=== PATIENT | male | born 1940 | race Two or more races ===

== ENCOUNTER 2017-07-12 11:27 | Inpatient (IN) | payer MEDICAID ==
[~2017-07-12] VITALS: Ht 170.2 cm; Wt 69.9 kg
[2017-07-12 11:27] VITALS: BP 127/73
--- NOTE | 2017-07-12 11:35 | Emergency Room Report ---
History of Present Illness General Chief Complaint: Altered Mental Status Source: Medical Record, PMD Present Illness HPI 77-year-old male brought in by [facility] jail with concern for altered mental status EMS and jail did not qualify what they meant by more altered than usual history of present illness limited on vent All information for review of paperwork History of diabetes, hypertension, BPH, glaucoma, known difficulty ambulating, muscle weakness, COPD X-ray on July 10 shows improvement in no and bilateral, has been on amikacin Allergies: Coded Allergies: No Known Allergies (Unverified , 07/12/17) Patient History Past Medical History: other - see hpi Past Surgical History: other - Trach/vent Pertinent Family History: none Social History: Denies: smoking, alcohol use, drug use Immunizations: UTD Reviewed Nursing Documentation: PMH: Agreed, PSxH: Agreed Review of Systems All Other Systems: limited - by trach/vent Physical Exam Vital Signs Date Time Temp Pulse Resp B/P (MAP) Pulse Ox O2 Delivery O2 Flow Rate FiO2 07/12/17 11:18 74 18 128/73 99 Mechanical Ventilator 40 Sp02 EP Interpretation: reviewed, normal General Appearance: normal inspection, well appearing, no apparent distress, alert, GCS 15, non-toxic Head: normocephalic, atraumatic ENT: normal ENT inspection, normal pharynx, no angioedema, normal voice Neck: normal inspection, full range of motion, supple, thyroid normal, no meningismus, no bony tend, tracheotomy Respiratory: normal inspection, no respiratory distress, no retraction, no accessory muscle use, no wheezing, crackles, speaking full sentences - non verbal Cardiovascular #1: regular rate, rhythm, no edema Gastrointestinal: normal inspection, normal bowel sounds, non tender, soft, no guarding, no hernia Genitourinary: no CVA tenderness Musculoskeletal: normal inspection, back normal, normal range of motion, David' s Sign negative Neurologic: normal inspection, alert, responsive, air route controller III-XII nml as tested, motor strength/tone normal, speech normal Psychiatric: normal inspection, judgement/insight normal, mood/affect normal Skin: normal inspection, normal color, no rash Lymphatic: normal inspection Medical Decision Making Medicare Attestation I Mari Guzman MD hereby attest that the medical record entry for date of service, 07/12/17 accurately reflects signatures/notations that I made in my capacity as MD when I treated/diagnosed the above listed Medicare beneficiary. I attest that this information is true, accurate and complete to the best of my knowledge. I understand that any falsification, omission, or concealment of material fact may subject me to administrative, civil, or criminal liability. This patient warrants hospital admission for extreme of age and has a condition that cannot be treated as outpatient. Diagnostic Impression: Primary Impression: Altered mental status Qualified Codes: R41.82 - Altered mental status, unspecified Additional Impression: Pneumonia Qualified Codes: B59 - Pneumocystosis ER Course 77-year-old male on trach vent with suspected more altered unusual Vital signs stable, afebrile No focal neurological deficits to suggest acute CVA Her paperwork from the jail has known bilateral pneumonia, on x-ray today looks like right greater than left bilateral fluffy infiltrates consistent with pneumonia Otherwise afebrile, no leukocytosis, normotensive, nonseptic appearing Review of paperwork shows patient was on amikacin, will continue here For cultures pending No other significant metabolic abnormality Endorsed to Dr. Cruz [facility] admission as PMD at 125pm EKG Diagnostic Results Rate: normal Rhythm: other - bifascicular block, LVH ST Segments: no acute changes ASA given to the pt in ED: No Rhythm Strip Diag. Results EP Interpretation: yes Rate: 74 Rhythm: NSR, no PVC's, no ectopy Chest X-Ray Diagnostic Results Chest X-Ray Diagnostic Results : Chest X-Ray Ordered: Yes # of Views/Limited/Complete: 1 View Indication: Other - AMS EP Interpretation: Yes Interpretation: other - Bilateral R>L PNA Electronically Signed by: Dr Mari Guzman MD Last Vital Signs Date Time Temp Pulse Resp B/P (MAP) Pulse Ox O2 Delivery O2 Flow Rate FiO2 07/12/17 11:18 74 18 128/73 99 Mechanical Ventilator 40 Status: improved Disposition: ADMITTED INPATIENT Condition: Serious MARI GUZMAN M.D. Jul 12, 2017 11:35
[2017-07-12 12:51] LABS: BASOPHILS % (AUTO) 0.7 % (0.0-2.0); EOSINOPHILS % (AUTO) 1.7 % (0.0-3.0); LYMPHOCYTES % (AUTO) 14.2 % (20.0-45.0); MEAN CORPUSCULAR HEMOGLOBIN 26.6 PG (27.0-31.0); MEAN CORPUSCULAR HGB CONC 29.9 G/DL (32.0-36.0); MEAN CORPUSCULAR VOLUME 89 FL (80-99); MEAN PLATELET VOLUME 6.9 FL (6.5-10.1); MONOCYTES % (AUTO) 6.4 % (1.0-10.0); PLATELET COUNT 319 K/UL (150-450); RED BLOOD COUNT 3.28 M/UL (4.70-6.10); RED CELL DISTRIBUTION WIDTH 17.3 % (11.6-14.8); WHITE BLOOD COUNT 9.9 K/UL (4.8-10.8)
[2017-07-12 12:57] LABS: APPEARANCE,URINE CLEAR; KETONES,URINE NEGATIVE (NEGATIVE); LEUKOCYTE ESTERASE ,URINE NEGATIVE (NEGATIVE); NITRITE,URINE NEGATIVE (NEGATIVE); PH,URINE 7 (4.5-8.0); PROTEIN,URINE 1+ (NEGATIVE); UROBILINOGEN,URINE 1 MG/DL (0.0-1.0)
[2017-07-12] MEDS ORDERED: Amikacin 1,000 MG in NS 110 ML IV STA (13:00)
[2017-07-12 13:01] LABS: INR 1.2 (0.9-1.1); PROTHROMBIN TIME 12.2 SEC (9.30-11.50)
[2017-07-12 13:03] LABS: ANION GAP 0 mmol/L (5-15); CALCIUM 10.7 MG/DL (8.5-10.1); CARBON DIOXIDE 37 MMOL/L (21-32); CHLORIDE 101 MMOL/L (98-107); CREATININE 0.9 MG/DL (0.55-1.30); POTASSIUM 4.7 MMOL/L (3.5-5.1); SODIUM 138 MMOL/L (136-145)
[2017-07-12] MEDS ORDERED: EPOGEN20000 UNI1 SUBQ (13:09)
[2017-07-12] MEDS ORDERED: NOVOLOG100 UNIT/3 SUBQ (13:09)
[2017-07-12] MEDS ORDERED: LEVEMIR100 UNIT/1 SUBQ (13:09)
[2017-07-12 13:11] LABS: BACTERIA,URINE FEW /HPF; RBC,URINE 0-2 /HPF (0 - 0); SQUAMOUS EPITHELIAL CELL,UR FEW /LPF (NONE/OCC); WBC,URINE 0-2 /HPF (0 - 0)
[2017-07-12 13:15] VITALS: BP 113/69
[2017-07-12 13:17] LABS: ALANINE AMINOTRANSFERASE 15 U/L (12-78); ALBUMIN/GLOBULIN RATIO 0.2 (1.0-2.7); ASPARTATE AMINO TRANSFERASE 19 U/L (15-37); CKMB 0.8 NG/ML (0.0-3.6); TOTAL PROTEIN 8.5 G/DL (6.4-8.2)
[2017-07-12 15:36] VITALS: BP 105/43
[2017-07-12 16:00] VITALS: BP 121/49
--- NOTE | 2017-07-12 16:12 | Diagnostic Imaging Report ---
Clinical Indication: Abdominal pain Technique: No oral contrast utilized, per referring physician request IV administration nonionic contrast. Venous phase spiral acquisition obtained through the abdomen and pelvis. Multiplanar reconstructions were generated. Total dose length product 716 mGycm. CTDIvol(s) 13 mGy. Dose reduction achieved using automated exposure control Comparison: None Findings: Lack of enteric contrast limits assessment of the GI tract. The appendix is normal. Considerable stool is seen throughout the colon, which is diffusely upper limits of normal in caliber. There is mild distention of the rectum by stool. No definite rectal wall thickening, but there is slight increased attenuation of the perirectal fat. There are equivocal small diverticula. No evidence of diverticulitis. No small bowel distention. There is a gastrostomy tube in good position. The stomach and duodenum are otherwise unremarkable. The distal esophagus is unremarkable. The gallbladder is markedly distended. No definite wall thickening. Contents of the gallbladder are high attenuation. There is some slightly denser material layering dependently. No biliary ductal dilatation The liver is unremarkable. The pancreas is atrophic. The spleen, adrenals are unremarkable. The right kidney demonstrates contour lobulation, is otherwise unremarkable. The left kidney demonstrates an exophytic subcentimeter low-attenuation lesion which is too small to characterize, as well as slight contour lobulation. There is very slight fullness of the left renal collecting system and proximal ureter, but no evident obstructing lesion. The bladder is mildly distended. No pelvic mass or adenopathy. No retroperitoneal or mesenteric mass or adenopathy. The heart is enlarged. There are is fairly extensive bilateral pulmonary interstitial and airspace disease. There is equivocal mild bronchiectasis, particularly in the lower lobes. A few right lower lobe bronchi appear to contain debris. The bones are remarkable for an old healed left inferior pubic ramus fracture deformity. There are wedge fracture deformities of the L1, L2, and questionably the L3 vertebral body. Impression: Limited assessment of the GI tract, due to lack of enteric contrast administration Distended gallbladder. No definite wall thickening or pericholecystic fluid. Significance uncertain, consider ultrasound for further evaluation as clinically indicated Somewhat dense gallbladder contents, likely reflects milk of calcium bile. This could also represent excreted contrast there is been recent vascular contrast study. Material layering dependently within the gallbladder could represent milk of calcium bile, small stones, or sludge Cardiomegaly Extensive bilateral pulmonary parenchymal disease. Given the above, suspect on the basis of congestive heart failure. However, findings could also represent pneumonia and it could be a significant chronic fibrotic component as well. There is also evidence of debris within right lower lobe bronchi Evidence of constipation Mild distention of the rectum by stool, mild fecal impaction not excludable. No definite rectal wall thickening, is slight increased attenuation of the perirectal fat could indicate a slight degree of stercoral colitis Equivocal colonic diverticulosis Gastrostomy in good position Subcentimeter low-attenuation left renal lesion, too small to characterize, most likely benign cyst. No further followup necessary L1, L2, and questionably L3 vertebral body compression fracture deformities. Acuity indeterminate. Consider MRI for better characterization of these are clinically relevant Distended bladder Other findings as noted, including old healed left inferior pubic ramus fracture deformity, atrophic pancreas The CT scanner at [facility] is accredited by the [employer] and the scans are performed usi -- ng protocols designed to limit radiation exposure to as low as reasonably achievable to attain images of sufficient resolution adequate for diagnostic evaluation.
[2017-07-12] MEDS ORDERED: TRUSOPT10 ML BOTH EYES (16:20)
[2017-07-12] MEDS ORDERED: COLACE100 MG GT (16:20)
[2017-07-12] MEDS ORDERED: ACETAMINOP160 MG/52 ORAL (16:20)
[2017-07-12] MEDS ORDERED: PEPCID20 MG GT (16:21)
[2017-07-12] MEDS ORDERED: TIMOPTIC 0.5%1 DRO1 BOTH EYES (16:21)
[2017-07-12] MEDS ORDERED: Acetaminophen Soln 160mg/5ml ORAL PRN (16:30)
[2017-07-12] MEDS ORDERED: Zolpidem 5mg tab GT PRN (16:30)
[2017-07-12] MEDS ORDERED: Acetaminophen 650mg/20.3ml GT PRN ×2 (17:00)
[2017-07-12] MEDS: Docusate 100mg/10ml Liq GT SCH ×2 (17:00→17:51)
--- NOTE | 2017-07-12 17:14 | Diagnostic Imaging Report ---
Indication: Shortness of breath Technique: One view of the chest Comparison: none Findings: There is extensive diffuse bilateral interstitial and alveolar parenchymal disease. The heart is borderline enlarged. There is slight blunting of the left posterior costophrenic sulcus. There is a tracheostomy. Impression: Extensive bilateral interstitial and alveolar parenchymal infiltrates versus edema. There may also be a chronic component. Correlate with clinical findings Borderline cardiomegaly Tracheostomy
[2017-07-12] MEDS: Piperacillin/Tazobactam 3.375 GM in D5W 55 ML IVPB SCH (17:49)
[2017-07-12] MEDS ORDERED: NovoLOG Insulin Flexpen SUBQ SCH (18:00)
[2017-07-12] MEDS: Dorzolamide 2% 10ml Btl BOTH EYES SCH (18:00)
[2017-07-12] MEDS: Timolol 0.5% Op Soln 2.5ml BOTH EYES SCH (18:00)
[2017-07-12] MEDS: NovoLOG Insulin Flexpen SUBQ SCH ×2 (18:28→23:54)
[2017-07-12 20:00] VITALS: BP 97/54
[2017-07-12] MEDS: Heparin 5000 units/ml inj SUBQ SCH (20:37)
[2017-07-12] MEDS: Levemir Flexpen SUBQ SCH (20:38)
[2017-07-12] MEDS: Vancomycin 1gm in D5W 275ml IVPB SCH (20:58)
[2017-07-13] VITALS: BP 116/52
[2017-07-13] MEDS: Piperacillin/Tazobactam 3.375 GM in D5W 55 ML IVPB SCH ×3 (02:14→17:06)
[2017-07-13 04:00] VITALS: BP 112/54
[2017-07-13 04:36] LABS: EOSINOPHILS % (AUTO) 3.3 % (0.0-3.0); LYMPHOCYTES % (AUTO) 16.9 % (20.0-45.0); MEAN CORPUSCULAR HEMOGLOBIN 28.4 PG (27.0-31.0); MEAN CORPUSCULAR VOLUME 89 FL (80-99); MEAN PLATELET VOLUME 7.3 FL (6.5-10.1); MONOCYTES % (AUTO) 7.7 % (1.0-10.0); NEUTROPHILS % (AUTO) 71.1 % (45.0-75.0); PLATELET COUNT 342 K/UL (150-450); RED BLOOD COUNT 3.14 M/UL (4.70-6.10); WHITE BLOOD COUNT 11.3 K/UL (4.8-10.8)
[2017-07-13 05:08] LABS: ANION GAP 3 mmol/L (5-15); CALCIUM 10.6 MG/DL (8.5-10.1); CARBON DIOXIDE 33 MMOL/L (21-32); CHLORIDE 103 MMOL/L (98-107); CREATININE 0.9 MG/DL (0.55-1.30); SODIUM 139 MMOL/L (136-145)
[2017-07-13] MEDS: NovoLOG Insulin Flexpen SUBQ SCH ×4 (06:00→23:58)
[2017-07-13 08:00] VITALS: BP 97/57
--- NOTE | 2017-07-13 08:03 | History & Physical ---
History and Physical History & Physicial 77-year-old male brought in from intermediate presents with abdominal distention. patient noted to have significant pneumonia. Patient chronically on the ventilator and GT. patient as well with pneumonia at the SNF and on inhaled antibiotics. currently stable and admitted to [facility] Allergies: No Known Allergies (Unverified , 07/12/17) Patient History Past Medical History: diabetes, hypertension, BPH, glaucoma, muscle weakness, COPD Past Surgical History: Trach/vent Pertinent Family History: none Social History: SNf care and bed bound Reviewed of systems: unable Physical exam WDWN NAD reduced breath sounds bilaterally without rhonchi or wheeze [id number] without MRG NABS nontender no HSM trach and GT in place no CCE nonfocal Laboratory Tests Test 07/12/17 12:00 07/12/17 12:35 07/13/17 03:25 White Blood Count 9.9 K/UL (4.8-10.8) 11.3 K/UL (4.8-10.8) H Red Blood Count 3.28 M/UL (4.70-6.10) L 3.14 M/UL (4.70-6.10) L Hemoglobin 8.7 G/DL (14.2-18.0) L 8.9 G/DL (14.2-18.0) L Hematocrit 29.1 % (42.0-52.0) L 27.9 % (42.0-52.0) L Mean Corpuscular Volume 89 FL (80-99) 89 FL (80-99) Mean Corpuscular Hemoglobin 26.6 PG (27.0-31.0) L 28.4 PG (27.0-31.0) Mean Corpuscular Hemoglobin Concent 29.9 G/DL (32.0-36.0) L 32.0 G/DL (32.0-36.0) Red Cell Distribution Width 17.3 % (11.6-14.8) H 17.0 % (11.6-14.8) H Platelet Count 319 K/UL (150-450) 342 K/UL (150-450) Mean Platelet Volume 6.9 FL (6.5-10.1) 7.3 FL (6.5-10.1) Neutrophils (%) (Auto) 77.0 % (45.0-75.0) H 71.1 % (45.0-75.0) Lymphocytes (%) (Auto) 14.2 % (20.0-45.0) L 16.9 % (20.0-45.0) L Monocytes (%) (Auto) 6.4 % (1.0-10.0) 7.7 % (1.0-10.0) Eosinophils (%) (Auto) 1.7 % (0.0-3.0) 3.3 % (0.0-3.0) H Basophils (%) (Auto) 0.7 % (0.0-2.0) 1.0 % (0.0-2.0) Prothrombin Time 12.2 SEC (9.30-11.50) H Prothromb Time International Ratio 1.2 (0.9-1.1) H Sodium Level 138 MMOL/L (136-145) 139 MMOL/L (136-145) Potassium Level 4.7 MMOL/L (3.5-5.1) 4.0 MMOL/L (3.5-5.1) Chloride Level 101 MMOL/L (98-107) 103 MMOL/L (98-107) Carbon Dioxide Level 37 MMOL/L (21-32) H 33 MMOL/L (21-32) H Anion Gap 0 mmol/L (5-15) L 3 mmol/L (5-15) L Blood Urea Nitrogen 21 mg/dL (7-18) H 20 mg/dL (7-18) H Creatinine 0.9 MG/DL (0.55-1.30) 0.9 MG/DL (0.55-1.30) Estimat Glomerular Filtration Rate mL/min (>60) mL/min (>60) Glucose Level 242 MG/DL (74-106) H 96 MG/DL (74-106) # Lactic Acid Level 1.50 mmol/L (0.66-2.22) Calcium Level 10.7 MG/DL (8.5-10.1) H 10.6 MG/DL (8.5-10.1) H Total Bilirubin 0.3 MG/DL (0.2-1.0) Aspartate Amino Transf (AST/SGOT) 19 U/L (15-37) Alanine Aminotransferase (ALT/SGPT) 15 U/L (12-78) Alkaline Phosphatase 89 U/L (46-116) Total Creatine Kinase 20 U/L (26-308) L Creatine Kinase MB 0.8 NG/ML (0.0-3.6) Creatine Kinase MB Relative Index 4.0 Troponin I 0.013 ng/mL (0.000-0.056) Pro-B-Type Natriuretic Peptide 863 pg/mL (0-125) H Total Protein 8.5 G/DL (6.4-8.2) H Albumin 1.6 G/DL (3.4-5.0) L Globulin 6.9 g/dL Albumin/Globulin Ratio 0.2 (1.0-2.7) L Urine Color Pale yellow Urine Appearance Clear Urine pH 7 (4.5-8.0) Urine Specific [place] 1.010 (1.005-1.035) Urine Protein 1+ (NEGATIVE) H Urine Glucose (UA) Negative (NEGATIVE) Urine Ketones Negative (NEGATIVE) Urine Occult Blood Negative (NEGATIVE) Urine Nitrite Negative (NEGATIVE) Urine Bilirubin Negative (NEGATIVE) Urine Urobilinogen 1 MG/DL (0.0-1.0) H Urine Leukocyte Esterase Negative (NEGATIVE) Urine RBC 0-2 /HPF (0 - 0) H Urine WBC 0-2 /HPF (0 - 0) Urine Squamous Epithelial Cells Few /LPF (NONE/OCC) Urine Bacteria Few /HPF (NONE) IMPRESSION Extensive pneumonia respiratory failure abdominal pain GT trach ALOC azotemia anemia PLAN respiratory care ID evaluation renal evaluation echo consider diuresis check BNP monitor clinically impression, plan, and exam edited and reviewed in detail care discussed with JAYCE CABAN Jul 13, 2017 08:03
[2017-07-13] MEDS: Timolol 0.5% Op Soln 2.5ml BOTH EYES SCH ×2 (08:47→17:05)
[2017-07-13] MEDS: Pantoprazole Inj IVP SCH (08:47)
[2017-07-13] MEDS: Dorzolamide 2% 10ml Btl BOTH EYES SCH ×3 (08:47→17:06)
[2017-07-13] MEDS: Docusate 100mg/10ml Liq GT SCH ×2 (08:47→17:05)
[2017-07-13] MEDS: Heparin 5000 units/ml inj SUBQ SCH ×2 (08:49→20:32)
[2017-07-13] MEDS: Levemir Flexpen SUBQ SCH ×2 (08:50→20:31)
[2017-07-13] MEDS: Vancomycin 1gm in D5W 275ml IVPB SCH ×2 (09:01→21:48)
--- NOTE | 2017-07-13 10:07 | Diagnostic Imaging Report ---
Indication: SOB Technique: XRAY CHEST 1 V. Comparison: 07/12/2017 Findings: The cardiomediastinal silhouette is unchanged. No new infiltrates are identified. There may be some slight decreased atelectasis in the left midlung. Impression: Possible slight decrease in atelectasis in the left midlung. No no other significant change from prior examination.
[2017-07-13 12:00] VITALS: BP 97/50
--- NOTE | 2017-07-13 15:45 | Consultation ---
DATE OF CONSULTATION: 07/13/2017 INFECTIOUS DISEASES CONSULTATION REFERRING PHYSICIAN: Kurt Cruz M.D. REASON FOR CONSULTATION: Pneumonia. HISTORY OF PRESENTING ILLNESS: This is a 77-year-old gentleman with history of diabetes, hypertension, benign prostatic hypertrophy, chronic obstructive pulmonary disease who came in to [facility] and was found to have pneumonia. An Infectious Diseases consultation has been obtained for antibiotics. PAST MEDICAL HISTORY: 1. History of diabetes. 2. Hypertension. 3. Respiratory failure, status post tracheostomy. 4. Benign prostatic hypertrophy. 5. Glaucoma. 6. weakness. 7. Chronic obstructive pulmonary disease. MEDICATIONS: As an inpatient, the patient is on Protonix, IV vancomycin, subcutaneous heparin, insulin, Zosyn, , timolol drops, docusate, acetaminophen, Ambien, Mylanta. ALLERGIES: No known drug allergies. SOCIAL HISTORY: He is a [facility] of a [facility]. No history of smoking, alcohol, or drug use. FAMILY HISTORY: Noncontributory. REVIEW OF SYSTEMS: Unable to obtain currently. PHYSICAL EXAMINATION: VITAL SIGNS: Temperature of 97.8, T-max of 98.9, pulse of 70, respiratory rate 17, blood pressure 97/57, O2 saturation of 98%. HEENT: Pupils equally reactive to light and accommodation. Mouth appears clean without thrush. NECK: Supple. No adenopathy. No JVD. Tracheostomy site appears clean. CARDIOVASCULAR: Regular rate and rhythm. No murmurs. LUNGS: Clear to auscultation bilaterally. No crackles. No wheezes. ABDOMEN: Soft and nontender. No organomegaly. G-tube site appears clean. EXTREMITIES: No cyanosis, no clubbing, no edema. LABORATORY AND DIAGNOSTIC DATA: White count 11.3, hemoglobin 8.9, hematocrit 27.9, MCV 89, platelet count 342, neutrophils of 71%. Sodium 139, potassium 4, chloride 103, bicarb 33, BUN 20, creatinine 0.9, glucose 96, calcium 10.6. On 07/12/2017 total bilirubin 0.3, AST 19, ALT 15, and alkaline phosphatase 89, CK of 20, CK-MB 0.8. Troponin 0.013. BNP 863. Total protein 8.5. Albumin 1.6. UA showing 0 to 2 white cells. Influenza serology is negative for A and B. Chest x-ray showing slight decrease in atelectasis in the left mid lung. CT abdomen and pelvis showing distended gallbladder, no definite wall thickening or pericholecystic fluid, diverticulosis noted. ASSESSMENT: This is a 77-year-old gentleman with history of diabetes and hypertension who comes in and is found to have a pneumonia. 1. Mild leukocytosis. 2. Chronic obstructive pulmonary disease. 3. Diabetes. PLAN: 1. Continue vancomycin and Zosyn. 2. We will order sputum for Gram stain and culture. 3. We will follow up cultures and adjust antibiotics accordingly. I would like to thank, Dr. Cruz for this consultation. Ryann Lim M.D. DR: Poly JOB#: [id number] CC: Kurt Cruz M.D.; Fax#: [phone]
[2017-07-13 16:00] VITALS: BP 99/52
--- NOTE | 2017-07-13 17:15 | Consultation ---
DATE OF CONSULTATION: 07/13/2017 NEPHROLOGY CONSULTATION ATTENDING PHYSICIAN: Kurt Cruz M.D. REASON FOR CONSULTATION: Elevated BUN and electrolyte abnormalities. HISTORY OF PRESENT ILLNESS: This is a 77-year-old male, who was admitted from subacute facility to the hospital with abdominal distention and pneumonia. I am asked to see the patient for elevation of BUN and abnormal electrolytes. The patient is on the ventilator due to respiratory failure and unable to give any further information. PAST MEDICAL HISTORY: 1. Respiratory failure, status post tracheostomy. 2. Type 2 diabetes mellitus. 3. Organic brain syndrome. 4. COPD. MEDICATIONS: IV Zosyn, vancomycin, Tylenol p.r.n., sodium docusate, Cosopt eye drops, subcutaneous heparin, insulin sliding scale, Levemir, Mylanta, Protonix, and timolol eye drops. ALLERGIES: No known drug allergies. SOCIAL HISTORY: Unable to obtain secondary to mental status. FAMILY HISTORY: Unable to obtain secondary to mental status. REVIEW OF SYSTEMS: Unable to obtain secondary to mental status. PHYSICAL EXAMINATION: GENERAL: This is an elderly male, who is on the ventilator. VITAL SIGNS: Blood pressure 97/57, pulse 67, apical temperature 97.8 degrees axillary, and O2 saturation is 98% on 40% FiO2. HEENT: The head is normocephalic and atraumatic. Pupils are equal, round, and reactive to light. NECK: He has a midline tracheostomy. LUNGS: Bilateral wheezes. HEART: Regular rate and rhythm without rubs, murmurs, or gallops. ABDOMEN: Soft and nontender. Bowel sounds were active. EXTREMITIES: No clubbing, cyanosis, or edema. He has muscle wasting. LABORATORY AND ANCILLARY DATA: CBC, hemoglobin is 8.9, hematocrit is 27.9, white count 11,300, and platelet count is 342,000. Serum chemistry, sodium 139, potassium 4, BUN 20, creatinine 0.9, and calcium is 10.6. Albumin is 1.6. Urinalysis within normal limits. ASSESSMENT: 1. Mild hypercalcemia. 2. Mild prerenal azotemia. PLAN: 1. Continue current therapy. 2. No indication for specific treatment for the patient's mild hypercalcemia as it is asymptomatic and does not warrant specific therapy. Thank you, Dr. Cruz, for letting me to participate in the care of this very complex and interesting patient. Viki Johnson M.D. DR: Kerry JOB#: [id number] CC:
[2017-07-13 20:00] VITALS: BP 97/48
[2017-07-14] VITALS: BP 115/55
[2017-07-14] MEDS: Piperacillin/Tazobactam 3.375 GM in D5W 55 ML IVPB SCH ×3 (01:32→17:57)
[2017-07-14 04:00] VITALS: BP 115/51
[2017-07-14 05:22] LABS: EOSINOPHILS % (AUTO) 4.3 % (0.0-3.0); LYMPHOCYTES % (AUTO) 23.1 % (20.0-45.0); MEAN CORPUSCULAR HEMOGLOBIN 28.2 PG (27.0-31.0); MEAN CORPUSCULAR HGB CONC 31.8 G/DL (32.0-36.0); MEAN CORPUSCULAR VOLUME 89 FL (80-99); MEAN PLATELET VOLUME 6.7 FL (6.5-10.1); MONOCYTES % (AUTO) 5.9 % (1.0-10.0); NEUTROPHILS % (AUTO) 65.6 % (45.0-75.0); PLATELET COUNT 379 K/UL (150-450); RED BLOOD COUNT 3.43 M/UL (4.70-6.10); RED CELL DISTRIBUTION WIDTH 16.6 % (11.6-14.8); WHITE BLOOD COUNT 12.5 K/UL (4.8-10.8)
[2017-07-14 05:46] LABS: ANION GAP 3 mmol/L (5-15); CALCIUM 10.4 MG/DL (8.5-10.1); CARBON DIOXIDE 32 MMOL/L (21-32); CHLORIDE 101 MMOL/L (98-107); CREATININE 1.1 MG/DL (0.55-1.30); POTASSIUM 4.3 MMOL/L (3.5-5.1); SODIUM 136 MMOL/L (136-145)
[2017-07-14] MEDS: NovoLOG Insulin Flexpen SUBQ SCH ×3 (06:12→17:57)
[2017-07-14 08:00] VITALS: BP 113/51
--- NOTE | 2017-07-14 08:46 | Nephrology Progress Note ---
Assessment/Plan Plan Mild hypercalcemia - repeat labs Subjective Subjective Confused Objective Objective Last 24 Hour Vital Signs Date Time Temp Pulse Resp B/P (MAP) Pulse Ox O2 Delivery O2 Flow Rate FiO2 07/14/17 07:00 71 24 40 07/14/17 05:13 69 24 40 07/14/17 04:00 40.0 07/14/17 04:00 74 07/14/17 04:00 98.2 83 19 115/51 97 Mechanical Ventilator 83 07/14/17 03:16 71 19 40 07/14/17 01:10 70 24 40 07/14/17 00:00 71 07/14/17 00:00 97.5 72 21 115/55 99 Mechanical Ventilator 07/14/17 00:00 40.0 07/13/17 23:14 69 22 40 07/13/17 21:30 72 20 40 07/13/17 20:00 40.0 07/13/17 20:00 97.0 59 20 97/48 98 Mechanical Ventilator 07/13/17 20:00 60 07/13/17 19:29 60 20 40 07/13/17 16:57 65 17 40 07/13/17 16:00 97.0 63 18 99/52 98 Mechanical Ventilator 07/13/17 16:00 40.0 07/13/17 16:00 64 07/13/17 15:16 66 20 40 07/13/17 13:14 65 18 40 07/13/17 12:00 40.0 07/13/17 12:00 66 07/13/17 12:00 97.5 64 18 97/50 99 Mechanical Ventilator 07/13/17 11:03 69 19 40 07/13/17 09:38 70 17 40 Laboratory Tests 07/14/17 05:05: White Blood Count 12.5H, Red Blood Count 3.43L, Hemoglobin 9.7L, Hematocrit 30.4L, Mean Corpuscular Volume 89, Mean Corpuscular Hemoglobin 28.2, Mean Corpuscular Hemoglobin Concent 31.8L, Red Cell Distribution Width 16.6H, Platelet Count 379, Mean Platelet Volume 6.7, Neutrophils (%) (Auto) 65.6, Lymphocytes (%) (Auto) 23.1, Monocytes (%) (Auto) 5.9, Eosinophils (%) (Auto) 4.3H, Basophils (%) (Auto) 1.0, Sodium Level 136, Potassium Level 4.3, Chloride Level 101, Carbon Dioxide Level 32, Anion Gap 3L, Blood Urea Nitrogen 25H, Creatinine 1.1, Estimat Glomerular Filtration Rate , Glucose Level 105, Calcium Level 10.4H Height (Feet): 5 Height (Inches): 7.00 Weight (Pounds): 154 Objective CV RR Trach clean Lungs CTA Abd SNT. BS + E No CCE AURELIO CONDON Jul 14, 2017 08:46
[2017-07-14] MEDS: Timolol 0.5% Op Soln 2.5ml BOTH EYES SCH ×2 (09:33→13:08)
[2017-07-14] MEDS: Dorzolamide 2% 10ml Btl BOTH EYES SCH ×3 (09:33→17:53)
[2017-07-14] MEDS: Docusate 100mg/10ml Liq GT SCH ×2 (09:34→17:53)
[2017-07-14] MEDS: Pantoprazole Inj IVP SCH (09:34)
[2017-07-14] MEDS: Heparin 5000 units/ml inj SUBQ SCH ×2 (09:36→21:14)
[2017-07-14] MEDS: Levemir Flexpen SUBQ SCH ×2 (09:48→21:15)
[2017-07-14] MEDS ORDERED: NS 500ML ONE (10:09)
[2017-07-14] MEDS ORDERED: Tubing IV Secondary IV ONE (10:09)
--- NOTE | 2017-07-14 10:16 | General Progress Note ---
Assessment/Plan Assessment/Plan IMPRESSION Extensive pneumonia respiratory failure abdominal pain GT trach ALOC azotemia anemia elevated BNP PLAN respiratory care ID evaluation renal evaluation all appreciated echo trial of diuresis monitor clinically impression, plan, and exam edited and reviewed in detail care discussed with RN Subjective Allergies: Coded Allergies: No Known Allergies (Unverified , 07/12/17) Subjective on the ventilator care noted extensive infiltrates noted Objective Last 24 Hour Vital Signs Date Time Temp Pulse Resp B/P (MAP) Pulse Ox O2 Delivery O2 Flow Rate FiO2 07/14/17 09:02 68 24 40 07/14/17 07:00 71 24 40 07/14/17 05:13 69 24 40 07/14/17 04:00 40.0 07/14/17 04:00 74 07/14/17 04:00 98.2 83 19 115/51 97 Mechanical Ventilator 83 07/14/17 03:16 71 19 40 07/14/17 01:10 70 24 40 07/14/17 00:00 71 07/14/17 00:00 97.5 72 21 115/55 99 Mechanical Ventilator 07/14/17 00:00 40.0 07/13/17 23:14 69 22 40 07/13/17 21:30 72 20 40 07/13/17 20:00 40.0 07/13/17 20:00 97.0 59 20 97/48 98 Mechanical Ventilator 07/13/17 20:00 60 07/13/17 19:29 60 20 40 07/13/17 16:57 65 17 40 07/13/17 16:00 97.0 63 18 99/52 98 Mechanical Ventilator 07/13/17 16:00 40.0 07/13/17 16:00 64 07/13/17 15:16 66 20 40 07/13/17 13:14 65 18 40 07/13/17 12:00 40.0 07/13/17 12:00 66 07/13/17 12:00 97.5 64 18 97/50 99 Mechanical Ventilator 07/13/17 11:03 69 19 40 Laboratory Tests 07/14/17 05:05: White Blood Count 12.5H, Red Blood Count 3.43L, Hemoglobin 9.7L, Hematocrit 30.4L, Mean Corpuscular Volume 89, Mean Corpuscular Hemoglobin 28.2, Mean Corpuscular Hemoglobin Concent 31.8L, Red Cell Distribution Width 16.6H, Platelet Count 379, Mean Platelet Volume 6.7, Neutrophils (%) (Auto) 65.6, Lymphocytes (%) (Auto) 23.1, Monocytes (%) (Auto) 5.9, Eosinophils (%) (Auto) 4.3H, Basophils (%) (Auto) 1.0, Sodium Level 136, Potassium Level 4.3, Chloride Level 101, Carbon Dioxide Level 32, Anion Gap 3L, Blood Urea Nitrogen 25H, Creatinine 1.1, Estimat Glomerular Filtration Rate , Glucose Level 105, Calcium Level 10.4H 07/14/17 09:00: Vancomycin Level Trough 23.8H Height (Feet): 5 Height (Inches): 7.00 Weight (Pounds): 154 Objective WDWN NAD coarse breath sounds bilaterally without rhonchi or wheeze [id number] without MRG NABS nontender no HSM no CC edema GT and trach in place nonfocal JAYCE MILLER Jul 14, 2017 10:16
[2017-07-14 12:00] VITALS: BP 103/51
--- NOTE | 2017-07-14 12:27 | Infectious Diseases Prog Note ---
Assessment/Plan Assessment/Plan antibiotics : vancomycin iv, zosyn A 1. pneumonia 2. respiratory failure 3. DM 4. HTN 5. COPD P 1. continue vancomycin iv, zosyn 2. will follow up cultures Subjective ROS Limited/Unobtainable: Yes Allergies: Coded Allergies: No Known Allergies (Unverified , 07/12/17) Objective Vital Signs Last 24 Hour Vital Signs Date Time Temp Pulse Resp B/P (MAP) Pulse Ox O2 Delivery O2 Flow Rate FiO2 07/14/17 11:37 66 22 40 07/14/17 09:02 68 24 40 07/14/17 07:35 76 07/14/17 07:00 71 24 40 07/14/17 05:13 69 24 40 07/14/17 04:00 40.0 07/14/17 04:00 74 07/14/17 04:00 98.2 83 19 115/51 97 Mechanical Ventilator 83 07/14/17 03:16 71 19 40 07/14/17 01:10 70 24 40 07/14/17 00:00 71 07/14/17 00:00 97.5 72 21 115/55 99 Mechanical Ventilator 07/14/17 00:00 40.0 07/13/17 23:14 69 22 40 07/13/17 21:30 72 20 40 07/13/17 20:00 40.0 07/13/17 20:00 97.0 59 20 97/48 98 Mechanical Ventilator 07/13/17 20:00 60 07/13/17 19:29 60 20 40 07/13/17 16:57 65 17 40 07/13/17 16:00 97.0 63 18 99/52 98 Mechanical Ventilator 07/13/17 16:00 40.0 07/13/17 16:00 64 07/13/17 15:16 66 20 40 07/13/17 13:14 65 18 40 Height (Feet): 5 Height (Inches): 7.00 Weight (Pounds): 154 HEENT: status post trach Respiratory/Chest: rhonchi - bilaterally Cardiovascular: normal rate, regular rhythm, no gallop/murmur Abdomen: soft, non tender, other - GT Extremities: no edema Microbiology Date/Time Source Procedure Growth Status 07/12/17 12:00 Blood Blood Culture - Preliminary NO GROWTH AFTER 24 HOURS Resulted 07/12/17 12:00 Blood Blood Culture - Preliminary NO GROWTH AFTER 24 HOURS Resulted 07/13/17 12:00 Sputum Gram Stain - Final Resulted 07/13/17 12:00 Sputum Sputum Culture - Preliminary NO GROWTH AFTER 24 HOURS Resulted 07/12/17 12:05 Nasal Not Otherwise Specified Influenza Types A,B Antigen (VENKATESH) - Final Complete Laboratory Tests Test 07/14/17 05:05 07/14/17 09:00 White Blood Count 12.5 K/UL (4.8-10.8) H Red Blood Count 3.43 M/UL (4.70-6.10) L Hemoglobin 9.7 G/DL (14.2-18.0) L Hematocrit 30.4 % (42.0-52.0) L Mean Corpuscular Volume 89 FL (80-99) Mean Corpuscular Hemoglobin 28.2 PG (27.0-31.0) Mean Corpuscular Hemoglobin Concent 31.8 G/DL (32.0-36.0) L Red Cell Distribution Width 16.6 % (11.6-14.8) H Platelet Count 379 K/UL (150-450) Mean Platelet Volume 6.7 FL (6.5-10.1) Neutrophils (%) (Auto) 65.6 % (45.0-75.0) Lymphocytes (%) (Auto) 23.1 % (20.0-45.0) Monocytes (%) (Auto) 5.9 % (1.0-10.0) Eosinophils (%) (Auto) 4.3 % (0.0-3.0) H Basophils (%) (Auto) 1.0 % (0.0-2.0) Sodium Level 136 MMOL/L (136-145) Potassium Level 4.3 MMOL/L (3.5-5.1) Chloride Level 101 MMOL/L (98-107) Carbon Dioxide Level 32 MMOL/L (21-32) Anion Gap 3 mmol/L (5-15) L Blood Urea Nitrogen 25 mg/dL (7-18) H Creatinine 1.1 MG/DL (0.55-1.30) Estimat Glomerular Filtration Rate mL/min (>60) Glucose Level 105 MG/DL (74-106) Calcium Level 10.4 MG/DL (8.5-10.1) H Vancomycin Level Trough 23.8 ug/mL (5.0-12.0) H ARLETH HULL Jul 14, 2017 12:26
--- NOTE | 2017-07-14 13:10 | Diagnostic Imaging Report ---
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 There may be some pleural fluid developing on the right as well. Tracheostomy remains. The heart is upper limits of normal in size Impression: Diffuse interstitial and alveolar parenchymal disease, slightly worse on the right, stable on the left, over one day
[2017-07-14 16:00] VITALS: BP 100/54
[2017-07-14 20:00] VITALS: BP 94/52
[2017-07-15] VITALS: BP 96/46
[2017-07-15] MEDS: Piperacillin/Tazobactam 3.375 GM in D5W 55 ML IVPB SCH ×3 (02:31→17:29)
[2017-07-15 04:00] VITALS: BP 103/53
[2017-07-15 05:12] LABS: ALANINE AMINOTRANSFERASE 11 U/L (12-78); ALBUMIN/GLOBULIN RATIO 0.3 (1.0-2.7); ANION GAP 5 mmol/L (5-15); ASPARTATE AMINO TRANSFERASE 15 U/L (15-37); CALCIUM 9.7 MG/DL (8.5-10.1); CARBON DIOXIDE 33 MMOL/L (21-32); CHLORIDE 99 MMOL/L (98-107); CREATININE 1.3 MG/DL (0.55-1.30); PHOSPHORUS 2.7 MG/DL (2.5-4.9); POTASSIUM 4.2 MMOL/L (3.5-5.1); SODIUM 137 MMOL/L (136-145); TOTAL PROTEIN 8.4 G/DL (6.4-8.2)
[2017-07-15] MEDS: NovoLOG Insulin Flexpen SUBQ SCH ×5 (06:02→23:53)
[2017-07-15 08:00] VITALS: BP 110/58
--- NOTE | 2017-07-15 08:01 | General Progress Note ---
Assessment/Plan Assessment/Plan IMPRESSION Extensive pneumonia respiratory failure abdominal pain GT trach ALOC azotemia anemia elevated BNP PLAN respiratory care ID evaluation renal evaluation all appreciated echo pending trial of diuresis CT chest monitor clinically impression, plan, and exam edited and reviewed in detail care discussed with RN Subjective Allergies: Coded Allergies: No Known Allergies (Unverified , 07/12/17) Subjective on the ventilator care noted extensive infiltrates noted Objective Last 24 Hour Vital Signs Date Time Temp Pulse Resp B/P (MAP) Pulse Ox O2 Delivery O2 Flow Rate FiO2 07/15/17 07:20 72 19 40 07/15/17 04:35 70 22 40 07/15/17 04:00 97.7 69 20 103/53 96 Mechanical Ventilator 07/15/17 04:00 66 07/15/17 04:00 40.0 07/15/17 02:45 64 19 40 07/15/17 01:12 70 18 40 07/15/17 00:00 97.9 71 18 96/46 96 Mechanical Ventilator 07/15/17 00:00 40.0 07/15/17 00:00 70 07/14/17 22:53 68 22 40 07/14/17 20:48 70 23 40 07/14/17 20:00 98.2 78 16 94/52 97 Mechanical Ventilator 07/14/17 20:00 40.0 07/14/17 20:00 71 07/14/17 19:32 72 20 40 07/14/17 17:04 69 22 40 07/14/17 16:07 40.0 07/14/17 16:00 97.7 72 18 100/54 95 Mechanical Ventilator 07/14/17 16:00 72 07/14/17 15:06 70 24 40 07/14/17 13:45 71 26 40 07/14/17 12:00 40.0 07/14/17 12:00 97.7 65 22 103/51 95 Mechanical Ventilator 07/14/17 12:00 68 07/14/17 11:37 66 22 40 07/14/17 09:02 68 24 40 Laboratory Tests 07/14/17 09:00: Vancomycin Level Trough 23.8H 07/15/17 04:10: Sodium Level 137, Potassium Level 4.2, Chloride Level 99, Carbon Dioxide Level 33H, Anion Gap 5, Blood Urea Nitrogen 30H, Creatinine 1.3, Estimat Glomerular Filtration Rate , Glucose Level 163H, Calcium Level 9.7, Phosphorus Level 2.7, Total Bilirubin 0.4, Aspartate Amino Transf (AST/SGOT) 15, Alanine Aminotransferase (ALT/SGPT) 11L, Alkaline Phosphatase 81, Total Protein 8.4H, Albumin 1.7L, Globulin 6.7, Albumin/Globulin Ratio 0.3L Height (Feet): 5 Height (Inches): 7.00 Weight (Pounds): 154 Objective WDWN NAD coarse breath sounds bilaterally without rhonchi or wheeze [id number] without MRG NABS nontender no HSM no CC edema GT and trach in place nonfocal JAYCE MILLER Jul 15, 2017 08:01
[2017-07-15] MEDS: Timolol 0.5% Op Soln 2.5ml BOTH EYES SCH ×2 (09:09→17:29)
[2017-07-15] MEDS: Dorzolamide 2% 10ml Btl BOTH EYES SCH ×3 (09:09→17:29)
[2017-07-15] MEDS: Docusate 100mg/10ml Liq GT SCH ×2 (09:10→17:29)
[2017-07-15] MEDS: Heparin 5000 units/ml inj SUBQ SCH ×2 (09:14→21:04)
[2017-07-15] MEDS: Levemir Flexpen SUBQ SCH ×2 (09:15→21:05)
[2017-07-15] MEDS ORDERED: Vancomycin 1gm in D5W 275ml IVPB SCH (10:00)
--- NOTE | 2017-07-15 11:22 | Diagnostic Imaging Report ---
Indication: Pneumonia Technique: CT chest was performed utilizing automated exposure control without intravenous contrast material. Axial and coronal images were generated. CT dose: Total DLP 644 mGycm; CTDI vol 19.4 mGy Comparison: Chest x-ray from earlier the same day Findings: Tracheostomy is present. Trace bilateral pleural effusions are seen. There is no significant pericardial effusion. The heart is enlarged. Atherosclerotic changes are noted with coronary artery calcifications. Consolidations are seen within the right middle lobe and right lower lobe. There is material filling the bronchus intermedius and right middle and lower lobe bronchi. Patchy consolidations are also seen within the bilateral upper lobes. Patchy interstitial septal thickening is noted of the lungs bilaterally. There are areas of bronchiectasis. There is high density within the gallbladder with gallstones. Degenerative changes of the spine are seen. Impression: Patchy consolidations involving the bilateral upper lobes, right middle lobe and right lower lobe could represent multifocal pneumonia or aspiration. Intraluminal material filling the bronchus intermedius and the right middle and lower lobe bronchi could represent mucus, secretions or aspirate. Further evaluation recommended as indicated. Trace bilateral pleural effusions. Acuity indeterminate interstitial septal thickening of the lungs bilaterally with relative sparing of the lung apices. No obvious honeycombing. Areas of traction bronchiectasis noted. Clinical correlation recommended. Cardiomegaly. Atherosclerotic changes with coronary artery calcifications. Gallbladder sludge and stones. Tracheostomy. The CT scanner at [facility] is accredited by the [employer] and the scans are performed using protocols designed to limit radiation exposure to as low as reasonably achievable to attain images of sufficient resolution adequate for diagnostic evaluation.
[2017-07-15 12:00] VITALS: BP 103/49
[2017-07-15 16:00] VITALS: BP 105/59
[2017-07-15 20:00] VITALS: BP 117/66
[2017-07-16] VITALS: BP 103/52
[2017-07-16] MEDS: Piperacillin/Tazobactam 3.375 GM in D5W 55 ML IVPB SCH (01:25)
[2017-07-16 04:00] VITALS: BP 113/55
[2017-07-16] MEDS: LORazepam Inj 2mg/ml 1ml IVP PRN ×3 (04:05→20:26)
[2017-07-16] MEDS: NovoLOG Insulin Flexpen SUBQ SCH ×3 (06:15→17:40)
--- NOTE | 2017-07-16 07:44 | General Progress Note ---
Assessment/Plan Assessment/Plan IMPRESSION Extensive pneumonia bronchiectasis chronic lung changes secretions respiratory failure abdominal pain GT trach ALOC azotemia anemia elevated BNP PLAN respiratory care ID evaluation noted renal evaluation all appreciated echo still not available consider bronchoscopy monitor clinically impression, plan, and exam edited and reviewed in detail care discussed with RN Subjective Allergies: Coded Allergies: No Known Allergies (Unverified , 07/12/17) Subjective on the ventilator care noted extensive infiltrates noted and CT Objective Last 24 Hour Vital Signs Date Time Temp Pulse Resp B/P (MAP) Pulse Ox O2 Delivery O2 Flow Rate FiO2 07/16/17 07:15 79 30 40 07/16/17 05:18 72 29 40 07/16/17 04:00 40.0 07/16/17 04:00 97.7 73 18 113/55 99 Mechanical Ventilator 40 07/16/17 03:53 82 25 40 07/16/17 03:50 70 07/16/17 01:20 71 26 40 07/16/17 00:00 97.5 66 18 103/52 100 Mechanical Ventilator 40 07/15/17 23:52 67 07/15/17 23:49 61 25 40 07/15/17 21:28 74 27 40 07/15/17 20:00 97.7 66 22 117/66 95 Mechanical Ventilator 40 07/15/17 20:00 40.0 07/15/17 19:43 64 07/15/17 19:31 67 20 40 07/15/17 16:51 73 21 40 07/15/17 16:00 97.7 68 20 105/59 99 Mechanical Ventilator 40 07/15/17 16:00 40.0 07/15/17 16:00 67 07/15/17 15:12 71 23 40 07/15/17 12:50 69 17 40 07/15/17 12:00 40.0 07/15/17 12:00 97.7 64 18 103/49 98 Mechanical Ventilator 40 07/15/17 11:49 67 07/15/17 10:55 68 17 40 07/15/17 09:13 71 22 40 07/15/17 08:01 72 07/15/17 08:00 40.0 07/15/17 08:00 96.9 67 20 110/58 98 Mechanical Ventilator 40 07/15/17 08:00 72 Height (Feet): 5 Height (Inches): 7.00 Weight (Pounds): 154 Objective WDWN NAD coarse breath sounds bilaterally without rhonchi or wheeze [id number] without MRG NABS nontender no HSM no CC edema GT and trach in place nonfocal JAYCE MILLER Jul 16, 2017 07:44
[2017-07-16 08:00] VITALS: BP 103/53
--- NOTE | 2017-07-16 08:12 | Infectious Diseases Prog Note ---
Assessment/Plan Assessment/Plan A 1. pneumonia with pseudomonas & MSSA 2. Ventilator dependent respiratory failure 3. DM 4. HPN 5. COPD 6. MRSA & VRE colonization P 1.discontinue vancomycin iv, Zosyn 2. start on Cefepime Subjective ROS Limited/Unobtainable: Yes Allergies: Coded Allergies: No Known Allergies (Unverified , 07/12/17) Objective Vital Signs Last 24 Hour Vital Signs Date Time Temp Pulse Resp B/P (MAP) Pulse Ox O2 Delivery O2 Flow Rate FiO2 07/16/17 07:15 79 30 40 07/16/17 05:18 72 29 40 07/16/17 04:00 40.0 07/16/17 04:00 97.7 73 18 113/55 99 Mechanical Ventilator 40 07/16/17 03:53 82 25 40 07/16/17 03:50 70 07/16/17 01:20 71 26 40 07/16/17 00:00 97.5 66 18 103/52 100 Mechanical Ventilator 40 07/15/17 23:52 67 07/15/17 23:49 61 25 40 07/15/17 21:28 74 27 40 07/15/17 20:00 97.7 66 22 117/66 95 Mechanical Ventilator 40 07/15/17 20:00 40.0 07/15/17 19:43 64 07/15/17 19:31 67 20 40 07/15/17 16:51 73 21 40 07/15/17 16:00 97.7 68 20 105/59 99 Mechanical Ventilator 40 07/15/17 16:00 40.0 07/15/17 16:00 67 07/15/17 15:12 71 23 40 07/15/17 12:50 69 17 40 07/15/17 12:00 40.0 07/15/17 12:00 97.7 64 18 103/49 98 Mechanical Ventilator 40 07/15/17 11:49 67 07/15/17 10:55 68 17 40 07/15/17 09:13 71 22 40 Height (Feet): 5 Height (Inches): 7.00 Weight (Pounds): 154 General Appearance: no acute distress HEENT: status post trach Respiratory/Chest: lungs clear, other - on ventilator, tachypneic Cardiovascular: normal rate Abdomen: soft, non tender, other - GT feeding Neurologic/Psychiatric: alert, responsive Microbiology Date/Time Source Procedure Growth Status 07/13/17 12:30 Nasal Nares MRSA Culture - Final Staphylococcus Aureus - Mrsa Complete 07/13/17 12:00 Sputum Gram Stain - Final Complete 07/13/17 12:00 Sputum Culture - Final Pseudomonas Aeruginosa Staphylococcus Aureus Complete 07/13/17 12:35 Rectum VRE Culture - Final Enterococcus Faecium - Vre Complete Current Medications Medications (Trade) Dose Ordered Sig/Ronal Route PRN Reason Start Time Stop Time Status Last Admin Dose Admin Acetaminophen (Tylenol) 650 mg Q4H PRN GT MILD PAIN/FEVER/HEADACHE 07/12/17 17:00 08/11/17 16:59 Al Hydroxide/Mg Hydroxide (Mylanta) 30 ml Q6H PRN GT constipation 07/12/17 16:30 08/11/17 16:29 Dextrose (Dextrose 50%) STAT PRN IV Hypoglycemia 07/12/17 18:15 08/11/17 18:14 07/15/17 18:07 Docusate Sodium (Colace) 100 mg BID GT 07/12/17 17:00 08/11/17 16:59 07/15/17 17:29 Dorzolamide HCl (Trusopt) 1 drop TID BOTH EYES 07/12/17 18:00 08/11/17 17:59 07/15/17 17:29 Heparin Sodium (Porcine) (Heparin 5000 units/ml) 5,000 units EVERY 12 HOURS SUBQ 07/12/17 21:00 08/11/17 20:59 07/15/17 21:04 Insulin Aspart (NovoLOG) EVERY 6 HOURS SUBQ 07/12/17 18:15 08/11/17 18:14 07/16/17 06:15 Insulin Detemir (Levemir) 30 units EVERY 12 HOURS SUBQ 07/12/17 21:00 08/11/17 20:59 07/15/17 21:05 Lansoprazole (Prevacid) 30 mg DAILY GT 07/15/17 09:00 08/14/17 08:59 07/15/17 09:10 Lorazepam (Ativan 2mg/ml 1ml) 1 mg Q3H PRN IVP Mild anxiety 07/15/17 22:30 07/22/17 22:29 07/16/17 04:05 Piperacillin Sod/ Tazobactam Sod 3.375 gm/Dextrose 55 ml @ 13.75 mls/ hr Q8HR@0200,1000,1800 IVPB 07/12/17 18:00 07/19/17 17:59 07/16/17 01:25 Timolol Maleate (Timoptic 0.5% Op Soln) 1 drop TWICE A DAY BOTH EYES 07/12/17 18:00 08/11/17 17:59 07/15/17 17:29 Vancomycin HCl (Vanco rx to dose) 1 ea DAILY PRN MISC Per rx protocol 07/12/17 16:30 08/11/17 16:29 Vancomycin HCl 1 gm/Dextrose 275 ml @ 183.708 mls/hr Q24H IVPB 07/15/17 10:00 07/20/17 09:59 07/15/17 12:59 Zolpidem Tartrate (Ambien) 5 mg HSPRN PRN GT Insomnia 07/12/17 16:30 07/19/17 16:29 07/15/17 21:48 ARMANDO SAMAYOA Jul 16, 2017 08:11
[2017-07-16] MEDS: Timolol 0.5% Op Soln 2.5ml BOTH EYES SCH ×2 (09:08→17:32)
[2017-07-16] MEDS: Dorzolamide 2% 10ml Btl BOTH EYES SCH ×3 (09:10→17:31)
[2017-07-16] MEDS: Docusate 100mg/10ml Liq GT SCH ×2 (09:10→17:32)
[2017-07-16] MEDS: Heparin 5000 units/ml inj SUBQ SCH ×2 (09:15→20:32)
[2017-07-16] MEDS: Levemir Flexpen SUBQ SCH ×2 (09:16→20:53)
[2017-07-16] MEDS: Cefepime HCl 1 GM in D5W 55 ML IVPB SCH ×2 (09:48→20:32)
[2017-07-16 12:00] VITALS: BP 96/48
[2017-07-16 16:00] VITALS: BP 103/54
[2017-07-16] MEDS ORDERED: NS 500ML ONE (16:00)
[2017-07-16] MEDS ORDERED: Tubing IV Secondary IV ONE (16:00)
[2017-07-16 20:00] VITALS: BP 124/63
[2017-07-17] VITALS: BP 113/58
[2017-07-17 04:00] VITALS: BP 138/66
[2017-07-17] MEDS: NovoLOG Insulin Flexpen SUBQ SCH ×5 (06:09→23:48)
[2017-07-17 08:00] VITALS: BP 109/59
--- NOTE | 2017-07-17 08:07 | General Progress Note ---
Assessment/Plan Assessment/Plan IMPRESSION Extensive pneumonia bronchiectasis chronic lung changes secretions respiratory failure abdominal pain GT trach ALOC azotemia anemia elevated BNP PLAN respiratory care ID evaluation noted renal evaluation all appreciated restraints ativan consider bronchoscopy for secretions monitor clinically impression, plan, and exam edited and reviewed in detail care discussed with RN Subjective Allergies: Coded Allergies: No Known Allergies (Unverified , 07/12/17) Subjective on the ventilator care noted extensive infiltrates noted on CT agitated requiring restraints Objective Last 24 Hour Vital Signs Date Time Temp Pulse Resp B/P (MAP) Pulse Ox O2 Delivery O2 Flow Rate FiO2 07/17/17 07:01 70 19 40 07/17/17 05:30 74 19 40 07/17/17 04:00 40.0 07/17/17 04:00 97.6 69 21 138/66 98 Mechanical Ventilator 40 07/17/17 03:51 71 07/17/17 03:10 71 21 40 07/17/17 00:36 72 20 40 07/17/17 00:00 40.0 07/17/17 00:00 97.9 72 19 113/58 97 Mechanical Ventilator 40 07/16/17 23:49 74 07/16/17 23:30 70 24 40 07/16/17 21:30 74 24 40 07/16/17 20:00 40.0 07/16/17 20:00 98.1 66 26 124/63 98 Mechanical Ventilator 40 07/16/17 19:30 84 20 40 07/16/17 19:16 69 07/16/17 17:26 86 23 40 07/16/17 16:02 40.0 07/16/17 16:00 97.5 70 22 103/54 98 Mechanical Ventilator 40 07/16/17 16:00 69 07/16/17 14:50 82 21 40 07/16/17 13:09 81 23 40 07/16/17 12:00 40.0 07/16/17 12:00 97.3 66 24 96/48 98 Mechanical Ventilator 40 07/16/17 12:00 65 07/16/17 10:36 76 19 40 07/16/17 09:15 74 22 40 Labs Test 07/14/17 09:00 07/15/17 04:10 Vancomycin Level Trough 23.8 ug/mL (5.0-12.0) Sodium Level 137 MMOL/L (136-145) Potassium Level 4.2 MMOL/L (3.5-5.1) Chloride Level 99 MMOL/L (98-107) Carbon Dioxide Level 33 MMOL/L (21-32) Anion Gap 5 mmol/L (5-15) Blood Urea Nitrogen 30 mg/dL (7-18) Creatinine 1.3 MG/DL (0.55-1.30) Estimat Glomerular Filtration Rate mL/min (>60) Glucose Level 163 MG/DL (74-106) Calcium Level 9.7 MG/DL (8.5-10.1) Phosphorus Level 2.7 MG/DL (2.5-4.9) Total Bilirubin 0.4 MG/DL (0.2-1.0) Aspartate Amino Transf (AST/SGOT) 15 U/L (15-37) Alanine Aminotransferase (ALT/SGPT) 11 U/L (12-78) Alkaline Phosphatase 81 U/L (46-116) Total Protein 8.4 G/DL (6.4-8.2) Albumin 1.7 G/DL (3.4-5.0) Globulin 6.7 g/dL Albumin/Globulin Ratio 0.3 (1.0-2.7) Height (Feet): 5 Height (Inches): 7.00 Weight (Pounds): 154 Objective WDWN NAD coarse breath sounds bilaterally without rhonchi or wheeze [id number] without MRG NABS nontender no HSM no CC edema GT and trach in place nonfocal JAYCE MILLER Jul 17, 2017 08:07
[2017-07-17] MEDS: Cefepime HCl 1 GM in D5W 55 ML IVPB SCH ×2 (08:40→20:39)
[2017-07-17] MEDS: Timolol 0.5% Op Soln 2.5ml BOTH EYES SCH ×2 (08:40→17:36)
[2017-07-17] MEDS: Docusate 100mg/10ml Liq GT SCH ×2 (08:40→17:36)
[2017-07-17] MEDS: Dorzolamide 2% 10ml Btl BOTH EYES SCH ×3 (08:40→17:36)
[2017-07-17] MEDS: Heparin 5000 units/ml inj SUBQ SCH ×2 (08:50→20:40)
[2017-07-17] MEDS: Levemir Flexpen SUBQ SCH ×2 (08:51→20:40)
[2017-07-17 12:00] VITALS: BP 105/54
--- NOTE | 2017-07-17 12:10 | Infectious Diseases Prog Note ---
"Assessment/Plan Assessment/Plan antibiotics : cefepime A 1. pseudomonas | staph aureus pneumonia 2. respiratory failure 3. DM 4. HTN 5. COPD P 1. continue cefepime 2. will follow up cultures Subjective ROS Limited/Unobtainable: Yes Allergies: Coded Allergies: No Known Allergies (Unverified , 07/12/17) Objective Vital Signs Last 24 Hour Vital Signs Date Time Temp Pulse Resp B/P (MAP) Pulse Ox O2 Delivery O2 Flow Rate FiO2 07/17/17 12:00 65 07/17/17 12:00 97.5 66 20 105/54 97 Mechanical Ventilator 40 07/17/17 12:00 40.0 07/17/17 11:14 66 19 40 07/17/17 09:32 68 19 40 07/17/17 08:00 69 07/17/17 08:00 40.0 07/17/17 08:00 98.0 70 21 109/59 99 Mechanical Ventilator 40 07/17/17 07:01 70 19 40 07/17/17 05:30 74 19 40 07/17/17 04:00 40.0 07/17/17 04:00 97.6 69 21 138/66 98 Mechanical Ventilator 40 07/17/17 03:51 71 07/17/17 03:10 71 21 40 07/17/17 00:36 72 20 40 07/17/17 00:00 40.0 07/17/17 00:00 97.9 72 19 113/58 97 Mechanical Ventilator 40 07/16/17 23:49 74 07/16/17 23:30 70 24 40 07/16/17 21:30 74 24 40 07/16/17 20:00 40.0 07/16/17 20:00 98.1 66 26 124/63 98 Mechanical Ventilator 40 07/16/17 19:30 84 20 40 07/16/17 19:16 69 07/16/17 17:26 86 23 40 07/16/17 16:02 40.0 07/16/17 16:00 97.5 70 22 103/54 98 Mechanical Ventilator 40 07/16/17 16:00 69 07/16/17 14:50 82 21 40 07/16/17 13:09 81 23 40 Height (Feet): 5 Height (Inches): 7.00 Weight (Pounds): 154 HEENT: status post trach Respiratory/Chest: lungs clear Cardiovascular: normal rate, regular rhythm, no gallop/murmur Abdomen: soft, non tender, other - GT Extremities: pedal pulses normal ARLETH HULL Jul 17, 2017 12:10"
[2017-07-17 16:07] VITALS: BP 124/60
[2017-07-17 20:00] VITALS: BP 122/60
[2017-07-17] MEDS: LORazepam Inj 2mg/ml 1ml IVP PRN (22:22)
[2017-07-18] VITALS: BP 121/77
[2017-07-18 04:00] VITALS: BP 125/83
[2017-07-18] MEDS: NovoLOG Insulin Flexpen SUBQ SCH ×2 (06:00→11:37)
[2017-07-18 08:00] VITALS: BP 114/70
--- NOTE | 2017-07-18 08:02 | General Progress Note ---
Assessment/Plan Assessment/Plan IMPRESSION Extensive pneumonia bronchiectasis chronic lung changes secretions respiratory failure abdominal pain GT trach ALOC azotemia anemia elevated BNP MRSA and VRE PLAN respiratory care ID evaluation noted on Cefepime renal evaluation all appreciated restraints ativan consider bronchoscopy for secretions monitor clinically and dc back to snf for now and monitor impression, plan, and exam edited and reviewed in detail care discussed with RN Subjective Allergies: Coded Allergies: No Known Allergies (Unverified , 07/12/17) Subjective on the ventilator care noted extensive infiltrates noted on CT agitated requiring restraints Objective Last 24 Hour Vital Signs Date Time Temp Pulse Resp B/P (MAP) Pulse Ox O2 Delivery O2 Flow Rate FiO2 07/18/17 07:08 71 21 40 07/18/17 05:06 71 20 40 07/18/17 04:07 40.0 07/18/17 04:00 73 07/18/17 04:00 98.1 81 22 125/83 100 Mechanical Ventilator 40 07/18/17 03:30 72 19 40 07/18/17 01:30 74 22 40 07/18/17 00:00 40.0 07/18/17 00:00 70 07/18/17 00:00 97.9 71 23 121/77 97 Mechanical Ventilator 40 07/17/17 23:36 71 23 40 07/17/17 21:30 75 23 40 07/17/17 20:00 40.0 07/17/17 20:00 97.7 72 20 122/60 98 Mechanical Ventilator 40 07/17/17 20:00 70 07/17/17 19:30 70 20 40 07/17/17 16:38 73 19 40 07/17/17 16:07 97.3 71 21 124/60 97 Mechanical Ventilator 40 07/17/17 16:00 66 07/17/17 15:40 40.0 07/17/17 15:40 68 07/17/17 15:12 72 20 40 07/17/17 14:16 70 20 40 07/17/17 14:15 68 20 Mechanical Ventilator 40.0 40 07/17/17 12:00 65 07/17/17 12:00 97.5 66 20 105/54 97 Mechanical Ventilator 40 07/17/17 12:00 40.0 07/17/17 11:14 66 19 40 07/17/17 09:32 68 19 40 Height (Feet): 5 Height (Inches): 7.00 Weight (Pounds): 154 Objective WDWN NAD coarse breath sounds bilaterally without rhonchi or wheeze [id number] without MRG NABS nontender no HSM no CC edema GT and trach in place nonfocal JAYCE MILLER Jul 18, 2017 08:02
[2017-07-18] MEDS: Levemir Flexpen SUBQ SCH (08:13)
[2017-07-18] MEDS: Docusate 100mg/10ml Liq GT SCH (08:32)
[2017-07-18] MEDS: Dorzolamide 2% 10ml Btl BOTH EYES SCH ×2 (08:32→12:44)
[2017-07-18] MEDS: Timolol 0.5% Op Soln 2.5ml BOTH EYES SCH (08:32)
[2017-07-18] MEDS: Heparin 5000 units/ml inj SUBQ SCH (08:33)
[2017-07-18] MEDS ORDERED: Cefepime HCl 2 GM in D5W 55 ML IV SCH (09:00)
--- NOTE | 2017-07-18 10:27 | Infectious Diseases Prog Note ---
Assessment/Plan Assessment/Plan A 1. pneumonia with pseudomonas & MSSA 2. Ventilator dependent respiratory failure 3. DM 4. 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 f/u CBC Subjective ROS Limited/Unobtainable: Yes Allergies: Coded Allergies: No Known Allergies (Unverified , 07/12/17) Objective Vital Signs Last 24 Hour Vital Signs Date Time Temp Pulse Resp B/P (MAP) Pulse Ox O2 Delivery O2 Flow Rate FiO2 07/18/17 09:17 71 19 40 07/18/17 08:00 97.9 72 22 114/70 98 Mechanical Ventilator 40 07/18/17 08:00 73 07/18/17 08:00 40.0 07/18/17 07:08 71 21 40 07/18/17 05:06 71 20 40 07/18/17 04:07 40.0 07/18/17 04:00 73 07/18/17 04:00 98.1 81 22 125/83 100 Mechanical Ventilator 40 07/18/17 03:30 72 19 40 07/18/17 01:30 74 22 40 07/18/17 00:00 40.0 07/18/17 00:00 70 07/18/17 00:00 97.9 71 23 121/77 97 Mechanical Ventilator 40 07/17/17 23:36 71 23 40 07/17/17 21:30 75 23 40 07/17/17 20:00 40.0 07/17/17 20:00 97.7 72 20 122/60 98 Mechanical Ventilator 40 07/17/17 20:00 70 07/17/17 19:30 70 20 40 07/17/17 16:38 73 19 40 07/17/17 16:07 97.3 71 21 124/60 97 Mechanical Ventilator 40 07/17/17 16:00 66 07/17/17 15:40 40.0 07/17/17 15:40 68 07/17/17 15:12 72 20 40 07/17/17 14:16 70 20 40 07/17/17 14:15 68 20 Mechanical Ventilator 40.0 40 07/17/17 12:00 65 07/17/17 12:00 97.5 66 20 105/54 97 Mechanical Ventilator 40 07/17/17 12:00 40.0 07/17/17 11:14 66 19 40 Height (Feet): 5 Height (Inches): 7.00 Weight (Pounds): 154 General Appearance: no acute distress HEENT: status post trach Respiratory/Chest: lungs clear, other - on ventilator Cardiovascular: normal rate Abdomen: soft, non tender, other - GT feeding Extremities: no edema Neurologic/Psychiatric: other - sleeping Current Medications Medications (Trade) Dose Ordered Sig/Ronal Route PRN Reason Start Time Stop Time Status Last Admin Dose Admin Acetaminophen (Tylenol) 650 mg Q4H PRN GT MILD PAIN/FEVER/HEADACHE 07/12/17 17:00 08/11/17 16:59 Al Hydroxide/Mg Hydroxide (Mylanta) 30 ml Q6H PRN GT constipation 07/12/17 16:30 08/11/17 16:29 Cefepime HCl 2 gm/ Dextrose 55 ml @ 110 mls/hr DAILY IV 07/18/17 09:00 07/25/17 08:59 07/18/17 08:35 Dextrose (Dextrose 50%) STAT PRN IV Hypoglycemia 07/12/17 18:15 08/11/17 18:14 07/17/17 18:21 Docusate Sodium (Colace) 100 mg BID GT 07/12/17 17:00 08/11/17 16:59 07/18/17 08:32 Dorzolamide HCl (Trusopt) 1 drop TID BOTH EYES 07/12/17 18:00 08/11/17 17:59 07/18/17 08:32 Heparin Sodium (Porcine) (Heparin 5000 units/ml) 5,000 units EVERY 12 HOURS SUBQ 07/12/17 21:00 08/11/17 20:59 07/18/17 08:33 Insulin Aspart (NovoLOG) EVERY 6 HOURS SUBQ 07/12/17 18:15 08/11/17 18:14 07/17/17 23:48 Insulin Detemir (Levemir) 30 units EVERY 12 HOURS SUBQ 07/12/17 21:00 08/11/17 20:59 07/17/17 20:40 Lansoprazole (Prevacid) 30 mg DAILY GT 07/15/17 09:00 08/14/17 08:59 07/18/17 08:32 Lorazepam (Ativan 2mg/ml 1ml) 1 mg Q3H PRN IVP Mild anxiety 07/15/17 22:30 122/17 22:29 07/17/17 22:22 Timolol Maleate (Timoptic 0.5% Op Soln) 1 drop TWICE A DAY BOTH EYES 07/12/17 18:00 08/11/17 17:59 07/18/17 08:32 Zolpidem Tartrate (Ambien) 5 mg HSPRN PRN GT Insomnia 07/12/17 16:30 07/19/17 16:29 07/15/17 21:48 ARMANDO SAMAYOA Jul 18, 2017 10:27
[2017-07-18 12:00] VITALS: BP 115/54
[2017-07-18 16:00] VITALS: BP 102/52
[2017-07-18] MEDS ORDERED: NS 500ML ONE (17:09)
--- NOTE | 2017-07-20 09:00 | Discharge Summary ---
Discharge Summary Hospital Course Date of Admission Jul 12, 2017 at 13:35 Date of Discharge Jul 18, 2017 at 17:10 Admitting Diagnosis alterd mental status HPI Ganga Cool is a 77 year old male who was admitted on Jul 12, 2017 at 13:35 for Altered Mental Status Hospital Course [id number] Discharge Discharge Disposition Patient was discharged to SNF/Subacute Facility(03) Discharge Diagnoses: Gracie Will NP Jul 20, 2017 09:00
--- NOTE | 2017-07-20 17:30 | Discharge Summary 2 SIG ---
DATE OF ADMISSION: 07/12/2017 DATE OF DISCHARGE: 07/18/2017 CONSULTANTS: 1. Ryann Lim M.D. 2. Viki Johnson M.D. BRIEF HOSPITAL COURSE: The patient is a 77-year-old male, who was brought in from long-term due to abdominal distention. He has history of chronic respiratory failure on trach and vent and has a G tube. There was concern for altered mental status and concern for pneumonia. On evaluation at ED, chest x-ray done showed extensive bilateral interstitial and alveolar parenchymal infiltrates. CT scan of the abdomen and pelvis showed extensive bilateral pulmonary parenchymal disease with evidence of constipation and mild distention of the rectum, mild fecal impaction. Gastrostomy tube in good position. No diverticulosis. Distended gallbladder with no definite wall thickening or pericholecystic fluid. Blood work showed anemia, hemoglobin 8.7 and hematocrit 29. Calcium was 10.7. BNP 863. He was admitted to [facility] for pneumonia, respiratory failure, abdominal pain, ALOC, azotemia and anemia. He was given respiratory care and was started by ID specialist with IV vancomycin and Zosyn. He had hypercalcemia and mild prerenal azotemia and was followed by Dr. Johnson. Hypercalcemia was mild and does not warrant specific therapy. Calcium level eventually normalized. Sputum culture showed growth of Pseudomonas and Staph aureus. Influenza A and B were negative. Blood cultures did not isolate any growth. Antibiotic was discontinued and was switched to cefepime. He was given diuresis with IV Lasix. He had chest CT done that showed patchy consolidation on the upper bilateral lobes, right middle lobe and right lower lobe with intraluminal material feeling the bronchus intermedius and right middle and lower lobe bronchi, mucous secretion or aspirates. He was given pulmonary support. He was eventually discharged back to long-term. FINAL DIAGNOSES: 1. Pseudomonas/Staphylococcus aureus pneumonia. 2. Bronchiectasis. 3. Chronic lung changes. 4. Acute on chronic respiratory failure, on trach and vent. 5. Gastrostomy tube in place. 6. Altered level of consciousness/acute encephalopathy. 7. Azotemia/mild acute kidney injury, prerenal. 8. Anemia. 9. Elevated beta-natriuretic peptide. 10. Hypertension. 11. Diabetes mellitus. 12. Hypercalcemia. DISPOSITION: The patient was discharged to [facility]. Kurt Cruz M.D. I have been assigned to dictate discharge summary on this account and I was not involved in the patient's management. Gracie Will N.P. DR: HARJIT JOB#: [id number] CC: MARYLU
--- NOTE | 2017-07-22 17:59 | Cardiology Report ---
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
== END 2017-07-18 17:10 | DRG 130 ==
LOC: EDBD 11:27 → EMR 11:52 → EDBEDREQ 12:05 → 2W 13:35 → EDBEDREQ 14:02 → 2W 16:09
PROC: 5A1955Z Respiratory Ventilation, Greater than 96 Consecutive Hours (ICD-10-PCS; principal; 2017-07-12)
DX: J15.211 Pneumonia due to Methicillin susceptible Staphylococcus aureus (principal); G93.40 Encephalopathy, unspecified; J47.0 Bronchiectasis with acute lower respiratory infection; E11.9 Type 2 diabetes mellitus without complications; E83.52 Hypercalcemia; J96.90 Respiratory failure, unspecified, unspecified whether with hypoxia or hypercapnia; I10 Essential (primary) hypertension; D64.9 Anemia, unspecified; Z93.0 Tracheostomy status; Z78.1 Physical restraint status; J15.1 Pneumonia due to Pseudomonas; Z93.1 Gastrostomy status; N40.0 Benign prostatic hyperplasia without lower urinary tract symptoms; H40.9 Unspecified glaucoma; R79.89 Other specified abnormal findings of blood chemistry; F09 Unspecified mental disorder due to known physiological condition; Z79.4 Long term (current) use of insulin; Z22.322 Carrier or suspected carrier of Methicillin resistant Staphylococcus aureus; Z16.21 Resistance to vancomycin
CPT/HCPCS: 36415; 71010; 71250; 74177; 80048; 80053; 80202; 81003; 82550; 82553; 82962; 83605; 83880; 84100; 84484; 85025; 85610; 86710; 86850; 86900; 86901; 87040; 87070; 87081; 87181; 87205; 93005; 94002; 94003; 94664; 99285; J1815; S5561